=== PATIENT | female | born 1990 | race African-American/Black ===

== ENCOUNTER 2021-07-11 08:46 | Emergency (ER) | payer OTHER, SELFPAY ==
[2021-07-11] MEDS ORDERED: Meclizine HCl 25 MG TAB ONE (09:25)
[2021-07-11] MEDS ORDERED: Ketorolac Tromethamine 30 MG/ML VIAL ONE (09:26)
[2021-07-11 09:58] LABS: Pregnancy Test - Urine (BHCG) Negative (Negative); Pregu Control Background? CLEAR/WHITE (CLR/WHITE); Pregu Control Bar Appear? YES (CONTROL BAR)
== END 2021-07-11 10:45 | disposition home or self-care (01) ==
LOC: CSHERS 08:46
DX: K02.9 Dental caries, unspecified (principal); R42 Dizziness and giddiness
CPT/HCPCS: 81025; 93005; 96372; J1885